=== PATIENT | male | born 1935 | race Caucasian/White ===

== ENCOUNTER 2018-11-21 22:15 | Inpatient (IN) | payer MEDICARE, MEDICAID ==
[2018-11-21 23:19] LABS: % BASOPHILS 0.3 % (0.0-2.0); % EOSINOPHILS 8.5 % (0.0-5.0); % LYMPHOCYTES 30.2 % (20.0-50.0); % MONOCYTES 11.9 % (2.0-10.0); % NEUTROPHILS 49.1 % (40.0-80.0); EOSINOPHILE ABSOLUTE 0.7 Th/cmm (0.1-0.4); HEMATOCRIT 41.3 % (41.0-60); HEMOGLOBIN 13.8 gm/dL (12-16); LYMPHOCYTE ABSOLUTE 2.5 Th/cmm (1.5-3.0); MEAN CELL VOLUME 92.3 fl (80-99); MEAN CORPUSCULAR HEMOGLOBIN 30.9 pg (27.0-31.0); MEAN CORPUSCULAR HGB CONC 33.4 pg (28.0-36.0); NEUTROPHILE ABSOLUTE 4.2 Th/cmm (1.8-8.0); PLATELET COUNT 183 Th/cmm (150-400); RED BLOOD COUNT 4.48 Mil/cmm (3.80-5.80); RED CELL DISTRIBUTION WIDTH 12.3 % (11.5-20.0); WHITE BLOOD COUNT 8.4 Th/cmm (4.8-10.8)
--- NOTE | 2018-11-21 23:28 | ED Physician Chart ---
ED Chief Complaint/HPI - Patient Information Date Seen:: 11/21/18 Time Seen:: 23:24 Chief Complaint:: agitation History of Present Illness:: 83 yr old male with agitation for laura psych eval pt on verbal but does f/u commandsf/u Allergies:: Allergies Allergy/AdvReac Type Severity Reaction Status Date / Time No Known Allergies Allergy Verified 11/21/18 22:24 Vitals:: Vital Signs - 8 hr 11/21/18 22:15 Temp 97.3 F HR 62 RR 18 BP 156/60 O2 Sat % 96 ED Review of Systems - Review of Systems General/Constitutional: No fever, No chills, No weight loss, No weakness, No diaphoresis, No edema, No loss of appetite Skin: No skin lesions, No rash, No bruising Head: No headache, No light-headedness Eyes: No loss of vision, No pain, No diplopia ENT: No earache, No nasal drainage, No sore throat, No tinnitus Neck: No neck pain, No swelling, No thyromegaly, No stiffness, No mass noted Cardio Vascular: No chest pain, No palpitations, No PND, No orthopnea, No edema Pulmonary: No SOB, No cough, No sputum, No wheezing GI: No nausea, No vomiting, No diarrhea, No pain, No melena, No hematochezia, No constipation, No hematemesis G/U: No dysuria, No frequency, No hematuria Musculoskeletal: No bone or joint pain, No back pain, No muscle pain Endocrine: No polyuria, No polydipsia Psychiatric: No prior psych history, No depression, No anxiety, No suicidal ideation Hematopoietic: No bruising, No lymphadenopathy Allergic/Immuno: No urticaria, No angioedema Neurological: No syncope, No focal symptoms, No weakness, No paresthesia, No headache, No seizure, No dizziness, No confusion, No vertigo Family Medical History - Family Member Mother History Unknown: Yes ED Labs/Radiology/EKG Results - Lab Results Results: Laboratory Tests 11/21/18 23:10 WBC 8.4 RBC 4.48 Hgb 13.8 Hct 41.3 MCV 92.3 MCH 30.9 MCHC Differential 33.4 RDW 12.3 Plt Count 183 MPV 7.6 Neutrophils % 49.1 Lymphocytes % 30.2 Monocytes % 11.9 H Eosinophils % 8.5 H Basophils % 0.3 ED Septic Shock - . Is Septic Shock (SBP<90, OR Lactate>4 mmol\L) present?: No - <6hrs of presentation: Vital Signs: Vital Signs - 8 hr 11/21/18 22:15 Temp 97.3 F HR 62 RR 18 BP 156/60 O2 Sat % 96 ED Reassessment (Disposition) - Reassessment Reassessment:: agitation for geropsych eval - Patient Disposition Discharge/Transfer:: Acute Care w/in this hosp Admitted to:: [facility] Condition at Disposition:: Stable
[2018-11-21 23:37] LABS: ALB/GLOB RATIO 1.3 (1.0-1.8); ALBUMIN 3.6 gm/dL (4.2-5.5); ALKALINE PHOSPHATASE 76 U/L (34-104); ANION GAP 12.4 (7.0-16.0); BILIRUBIN,TOTAL 0.4 mg/dL (0.3-1.0); BUN - UREA NITROGEN 26 mg/dL (7-25); CARBON DIOXIDE 21.7 mEq/L (21.0-31.0); CHLORIDE 103 mEq/L (98-107); CREATININE - SERUM 1.3 mg/dL (0.7-1.3); GLUCOSE 158 mg/dL (70-105); POTASSIUM SERUM 4.1 mEq/L (3.5-5.1); SGOT 9 U/L (13-39); SGPT/ALT 6 U/L (7-52); SODIUM SERUM 133 mEq/L (136-145); TOTAL PROTEIN,SERUM 6.4 gm/dL (6.0-8.3)
[2018-11-22 01:06] VITALS: BP 139/72
[2018-11-22] MEDS ORDERED: Non-Formulary Item 1 EA (Cetirizine Hcl [Cetirizine Hcl] 10 MG) PO PRN (01:36)
[2018-11-22 04:58] LABS: CHOLESTEROL 151 mg/dL (<200); HDL -HIGH DENSITY LIPOPROTEIN 35 mg/dL (23-92); TRIGLYCERIDES 189 mg/dL (<150)
[2018-11-22] MEDS: Pantoprazole 40 mg EC Tab PO SCH (09:17)
[2018-11-22] MEDS: Aspirin 81mg Chewable Tab PO SCH (09:19)
--- NOTE | 2018-11-22 18:33 | History & Physical ---
ADMIT DATE: 11/22/2018 CHIEF COMPLAINT: Agitation. HISTORY OF PRESENT ILLNESS: An 83-year-old male who is a [facility] resident, admitted to the Geropsych Unit due to agitation. PAST MEDICAL HISTORY: CAD, dementia, glaucoma, hypertension, GERD, psychosis, BPH. PAST SURGICAL HISTORY: None known. ALLERGIES: No drug allergies. HOME MEDICATIONS: See medication list. REVIEW OF SYSTEMS: GENERAL: Denies any fever or chills. CARDIOVASCULAR: Denies chest pain. RESPIRATORY: Denies shortness of breath. GASTROINTESTINAL: Denies nausea, vomiting or abdominal pain. GENITOURINARY: Denies increased frequency. NEUROLOGIC: No headache, seizures or syncope. All systems reviewed and negative. PHYSICAL EXAMINATION: GENERAL: Elderly male, awake, alert with confusion, no apparent distress. VITAL SIGNS: Temperature 98.0, heart rate 65, blood pressure 139/72, respirations 20. HEENT: Head is normocephalic, atraumatic. NECK: Supple. No mass. LUNGS: Clear bilaterally. ABDOMEN: Soft, nontender. LABORATORY DATA: WBC 8.4, H and H 13.8 and 41.3, platelet of 193. Sodium 132, potassium 4.1, chloride 103, BUN 26, creatinine 1.3. ASSESSMENT: Agitation, coronary artery disease, dementia, hypertension, gastroesophageal reflux disease, psychosis, benign prostatic hypertrophy. PLAN: We will continue the patient's home medications. Fall precautions will be initiated. We will continue to monitor this patient. [facility]# [id number]
--- NOTE | 2018-11-23 01:59 | Psychiatric Evaluation ---
DATE OF SERVICE: 11/21/2018 INITIAL EVALUATION MENTAL STATUS EXAM PATIENT'S AGE: 83. SEX: Male. PHYSICIAN: Dr. Irizarry. CHIEF COMPLAINT: Agitation and difficulty following directions. HISTORY OF PRESENT ILLNESS: The patient is an 83-year-old male who was [facility] the [facility] from [facility] because of increased agitation. The patient has been increasingly irritable and has been restless. The patient also has been having mood swings and has not been able to follow any of staff directions. He also still have been resisting care and has been unpredictable. PAST PSYCHIATRIC HISTORY: The patient has history of dementia and psychosis. PAST MEDICAL HISTORY: The patient has history of Parkinson's disease as well as diabetes mellitus, coronary artery disease and cerebrovascular accident. SOCIAL HISTORY: The [facility] lives in [facility]. No known alcohol or street drug use. ALLERGIES: No known allergies. MENTAL STATUS EXAMINATION: The patient appears his stated age. Anxious. Confused. Forgetful. Hardly answer questions. Easily agitated. Disorganized thoughts and actively responding. The patient did not answer question regarding hallucinations or delusions or regarding suicide or homicide. The patient is alert, but seems to be disoriented to time, place, person and situation. Impaired immediate and recent memory, but intact remote memory. Poor insight and poor judgment. ASSESSMENT: PRIMARY DIAGNOSIS: Unspecified psychosis. SECONDARY DIAGNOSIS: Dementia, moderate to severe, with psychotic features. MEDICAL DIAGNOSES: 1. Diabetes mellitus. 2. Hypertension. 3. Parkinson's disease. TREATMENT PLAN: We will monitor the patient's behavior and condition closely. We will start individual as well as milieu psychotherapy. Also, we will work on behavioral modification. Also, we will adjust psychotropic medications. ESTIMATED LENGTH OF STAY: 5-7 days. PATIENT'S STRENGTHS AND WEAKNESSES: The patient has supportive team in [facility]. WEAKNESSES: Poor impulse control and his forgetfulness. AFTER DISCHARGE PLAN: The patient will return to [facility] with plans for outpatient treatment and followup. CRITERIA FOR DISCHARGE: Better impulse control and stabilizing psychotropic medications. [facility]# [id number]
[2018-11-23 07:06] LABS: A1C 6.8 % (4.8-5.6)
[2018-11-23] MEDS: Pantoprazole 40 mg EC Tab PO SCH (08:40)
[2018-11-23] MEDS: Aspirin 81mg Chewable Tab PO SCH (08:40)
--- NOTE | 2018-11-23 15:53 | Progress Notes ---
DATE: 11/23/2018 SUBJECTIVE: Chart was reviewed and the patient interviewed. Also discussed the patient's condition with the staff and reviewed records and labs. The patient is still restless and is still anxious. The patient also still needs redirections. He also is still confused and still has tendency to wandering around. At the same time, the patient is compliant with taking his medications and the patient continued to take Risperdal 0.5 mg every day with no side effects. ASSESSMENT: The patient is still confused and anxious and needs redirections. TREATMENT PLAN: We will continue to monitor behavior closely. The patient also has Risperdal and also somehow he has Seroquel. We will discontinue Risperdal and we will continue Seroquel and continue to monitor behavior and condition closely. JOB# [id number]
[2018-11-24] MEDS: Aspirin 81mg Chewable Tab PO SCH (09:12)
[2018-11-24] MEDS: Pantoprazole 40 mg EC Tab PO SCH (09:12)
--- NOTE | 2018-11-24 11:19 | Internal Medicine Prog Note ---
Internal Medicine Subjective - Subjective Patient seen and examined:: chart reviewed Patient is:: awake, other (pt still confused anxious needs diredection ) Per staff patient has:: no adverse event, no episodes of fall, tolerating meds Internal Medicine Objective - Results Result Diagrams: 11/21/18 23:10 11/21/18 23:10 Recent Labs: Laboratory Last Values WBC 8.4 Th/cmm (4.8-10.8) 11/21/18 23:10 RBC 4.48 Mil/cmm (3.80-5.80) 11/21/18 23:10 Hgb 13.8 gm/dL (12-16) 11/21/18 23:10 Hct 41.3 % (41.0-60) 11/21/18 23:10 MCV 92.3 fl (80-99) 11/21/18 23:10 MCH 30.9 pg (27.0-31.0) 11/21/18 23:10 MCHC Differential 33.4 pg (28.0-36.0) 11/21/18 23:10 RDW 12.3 % (11.5-20.0) 11/21/18 23:10 Plt Count 183 Th/cmm (150-400) 11/21/18 23:10 MPV 7.6 fl 11/21/18 23:10 Neutrophils % 49.1 % (40.0-80.0) 11/21/18 23:10 Lymphocytes % 30.2 % (20.0-50.0) 11/21/18 23:10 Monocytes % 11.9 % (2.0-10.0) H 11/21/18 23:10 Eosinophils % 8.5 % (0.0-5.0) H 11/21/18 23:10 Basophils % 0.3 % (0.0-2.0) 11/21/18 23:10 Sodium 133 mEq/L (136-145) L 11/21/18 23:10 Potassium 4.1 mEq/L (3.5-5.1) 11/21/18 23:10 Chloride 103 mEq/L (98-107) 11/21/18 23:10 Carbon Dioxide 21.7 mEq/L (21.0-31.0) 11/21/18 23:10 Anion Gap 12.4 (7.0-16.0) 11/21/18 23:10 BUN 26 mg/dL (7-25) H 11/21/18 23:10 Creatinine 1.3 mg/dL (0.7-1.3) 11/21/18 23:10 Est GFR ( Amer) TNP 11/21/18 23:10 Est GFR (Non-Af Amer) TNP 11/21/18 23:10 BUN/Creatinine Ratio 20.0 11/21/18 23:10 Glucose 158 mg/dL (70-105) H 11/21/18 23:10 POC Glucose 111 MG/DL (70 - 105) H 11/22/18 06:54 Calcium 9.0 mg/dL (8.6-10.3) 11/21/18 23:10 Total Bilirubin 0.4 mg/dL (0.3-1.0) 11/21/18 23:10 AST 9 U/L (13-39) L 11/21/18 23:10 ALT 6 U/L (7-52) L 11/21/18 23:10 Alkaline Phosphatase 76 U/L (34-104) 11/21/18 23:10 Total Protein 6.4 gm/dL (6.0-8.3) 11/21/18 23:10 Albumin 3.6 gm/dL (4.2-5.5) L 11/21/18 23:10 Globulin 2.8 gm/dL 11/21/18 23:10 Albumin/Globulin Ratio 1.3 (1.0-1.8) 11/21/18 23:10 Triglycerides 189 mg/dL (<150) H 11/22/18 00:10 Cholesterol 151 mg/dL (<200) 11/22/18 00:10 LDL Cholesterol Direct 105 mg/dL (75-193) 11/22/18 00:10 HDL Cholesterol 35 mg/dL (23-92) 11/22/18 00:10 - Physical Exam Vitals and I&O: Vital Signs Temp 98.0 F 11/24/18 04:46 Pulse 80 11/24/18 09:13 Resp 19 11/24/18 04:46 BP 149/73 11/24/18 09:13 Pulse Ox 99 11/24/18 04:46 Intake & Output 11/23/18 11/24/18 11/24/18 18:59 06:59 18:59 Intake Total 1500 480 Balance 1500 480 Intake: Oral 1500 480 Other: # Voids 3 2 # Bowel Movements 1 Active Medications: Current Medications Acetaminophen (Tylenol) 650 mg PO Q6H PRN PRN Reason: Pain (Moderate) Stop: 01/21/19 01:35 Aspirin (Aspirin Chewable) 81 mg PO DAILY [facility] Stop: 01/21/19 08:59 Last Admin: 11/24/18 09:12 Dose: 81 mg Clopidogrel Bisulfate (Plavix) 75 mg PO DAILY [facility] Stop: 01/21/19 08:59 Last Admin: 11/24/18 09:13 Dose: 75 mg Donepezil HCl (Aricept) 5 mg PO HS [facility] Stop: 01/21/19 20:59 Last Admin: 11/23/18 20:42 Dose: 5 mg Latanoprost (Xalatan 0.005% Ophth Soln) 1 drop EACH EYE HS [facility] Stop: 01/21/19 20:59 Last Admin: 11/23/18 20:42 Dose: 1 drop Loratadine (Claritin) 10 mg PO DAILY PRN PRN Reason: ALLERGY SYMPTOMS Stop: 01/21/19 07:39 Lorazepam (Ativan) 0.5 mg PO Q4HR PRN; Protocol PRN Reason: Anxiety Stop: 12/22/18 01:21 Metoprolol Tartrate (Lopressor) 25 mg PO BID [facility] Stop: 01/21/19 08:59 Last Admin: 11/24/18 09:13 Dose: 25 mg Pantoprazole Sodium (Protonix) 40 mg PO DAILY [facility] Stop: 01/21/19 08:59 Last Admin: 11/24/18 09:12 Dose: 40 mg Quetiapine Fumarate (Seroquel) 12.5 mg PO HS [facility]; Protocol Stop: 01/21/19 20:59 Last Admin: 11/23/18 20:41 Dose: 12.5 mg Sitagliptin Phosphate (Januvia) 50 mg PO BID [facility] Stop: 01/21/19 08:59 Last Admin: 11/24/18 09:13 Dose: 50 mg Tamsulosin HCl (Flomax) 0.4 mg PO DAILY [facility] Stop: 01/21/19 08:59 Last Admin: 11/24/18 09:13 Dose: 0.4 mg Zolpidem Tartrate (Ambien) 5 mg PO HS PRN PRN Reason: Insomnia Stop: 01/21/19 01:21 General: demented HEENT: NC/AT Neck: Supple Lungs: CTAB Cardiovascular: RRR Abdomen: soft, non-tender Extremities: clear Neurological: no change Internal Medicine Assmt/Plan - Assessment Assessment: agitation dementia cadhtn gerd psychosis bph - Plan Plan: Continuation of care. Monitor Labs. Continue present meds as directed. Monitor Diet/Nutritional support. Psych management per Psych. PT/OT prn. Safety precaution. Supportive care. Fall precaution, frequent nursing rounds, and as needed restraints to prevent fall. Continue collaborating with consulting specialists, case management and nursing team. Will Monitor patient and continue present care management.
--- NOTE | 2018-11-24 15:49 | Progress Notes ---
DATE: 11/24/2018 Case was discussed with staff of the patient, reviewed records. Covering for Dr. Irizarry. This is an 83-year-old male who was admitted on 11/21/2018, because of agitation, increasingly irritable, restless with mood swings, unable to follow staff direction, came from [facility]. History of dementia and psychosis. The patient continues to be unpredictable, impulsive, needing redirection. Continues to have poor insight, easily agitated, restless. He is compliant with the medication with no side effects, no sedation, no nausea, no extrapyramidal symptoms, Risperdal 0.5 mg daily. We will continue outpatient group therapy, milieu therapy, adjust medication as needed. [facility]# [id number]
[2018-11-25] MEDS: Pantoprazole 40 mg EC Tab PO SCH (08:51)
[2018-11-25] MEDS: Aspirin 81mg Chewable Tab PO SCH (08:51)
--- NOTE | 2018-11-25 09:56 | Internal Medicine Prog Note ---
Internal Medicine Subjective - Subjective Patient is:: awake, in bed, other (pt still confused anxious needs diredection ) Per staff patient has:: no adverse event, no episodes of fall, tolerating meds Internal Medicine Objective - Results Result Diagrams: 11/21/18 23:10 11/21/18 23:10 Recent Labs: Laboratory Last Values WBC 8.4 Th/cmm (4.8-10.8) 11/21/18 23:10 RBC 4.48 Mil/cmm (3.80-5.80) 11/21/18 23:10 Hgb 13.8 gm/dL (12-16) 11/21/18 23:10 Hct 41.3 % (41.0-60) 11/21/18 23:10 MCV 92.3 fl (80-99) 11/21/18 23:10 MCH 30.9 pg (27.0-31.0) 11/21/18 23:10 MCHC Differential 33.4 pg (28.0-36.0) 11/21/18 23:10 RDW 12.3 % (11.5-20.0) 11/21/18 23:10 Plt Count 183 Th/cmm (150-400) 11/21/18 23:10 MPV 7.6 fl 11/21/18 23:10 Neutrophils % 49.1 % (40.0-80.0) 11/21/18 23:10 Lymphocytes % 30.2 % (20.0-50.0) 11/21/18 23:10 Monocytes % 11.9 % (2.0-10.0) H 11/21/18 23:10 Eosinophils % 8.5 % (0.0-5.0) H 11/21/18 23:10 Basophils % 0.3 % (0.0-2.0) 11/21/18 23:10 Sodium 133 mEq/L (136-145) L 11/21/18 23:10 Potassium 4.1 mEq/L (3.5-5.1) 11/21/18 23:10 Chloride 103 mEq/L (98-107) 11/21/18 23:10 Carbon Dioxide 21.7 mEq/L (21.0-31.0) 11/21/18 23:10 Anion Gap 12.4 (7.0-16.0) 11/21/18 23:10 BUN 26 mg/dL (7-25) H 11/21/18 23:10 Creatinine 1.3 mg/dL (0.7-1.3) 11/21/18 23:10 Est GFR ( Amer) TNP 11/21/18 23:10 Est GFR (Non-Af Amer) TNP 11/21/18 23:10 BUN/Creatinine Ratio 20.0 11/21/18 23:10 Glucose 158 mg/dL (70-105) H 11/21/18 23:10 POC Glucose 111 MG/DL (70 - 105) H 11/22/18 06:54 Calcium 9.0 mg/dL (8.6-10.3) 11/21/18 23:10 Total Bilirubin 0.4 mg/dL (0.3-1.0) 11/21/18 23:10 AST 9 U/L (13-39) L 11/21/18 23:10 ALT 6 U/L (7-52) L 11/21/18 23:10 Alkaline Phosphatase 76 U/L (34-104) 11/21/18 23:10 Total Protein 6.4 gm/dL (6.0-8.3) 11/21/18 23:10 Albumin 3.6 gm/dL (4.2-5.5) L 11/21/18 23:10 Globulin 2.8 gm/dL 11/21/18 23:10 Albumin/Globulin Ratio 1.3 (1.0-1.8) 11/21/18 23:10 Triglycerides 189 mg/dL (<150) H 11/22/18 00:10 Cholesterol 151 mg/dL (<200) 11/22/18 00:10 LDL Cholesterol Direct 105 mg/dL (75-193) 11/22/18 00:10 HDL Cholesterol 35 mg/dL (23-92) 11/22/18 00:10 - Physical Exam Vitals and I&O: Vital Signs Temp 97.8 F 11/24/18 14:00 Pulse 56 11/25/18 08:52 Resp 18 11/24/18 14:00 BP 119/62 11/25/18 08:52 Pulse Ox 97 11/24/18 14:00 Intake & Output 11/24/18 11/25/18 11/25/18 18:59 06:59 18:59 Intake Total 1200 Balance 1200 Intake: Oral 1200 Other: # Voids 3 # Bowel Movements 0 Active Medications: Current Medications Acetaminophen (Tylenol) 650 mg PO Q6H PRN PRN Reason: Pain (Moderate) Stop: 01/21/19 01:35 Aspirin (Aspirin Chewable) 81 mg PO DAILY [facility] Stop: 01/21/19 08:59 Last Admin: 11/25/18 08:51 Dose: 81 mg Clopidogrel Bisulfate (Plavix) 75 mg PO DAILY [facility] Stop: 01/21/19 08:59 Last Admin: 11/25/18 08:51 Dose: 75 mg Donepezil HCl (Aricept) 5 mg PO HS [facility] Stop: 01/21/19 20:59 Last Admin: 11/24/18 20:07 Dose: 5 mg Latanoprost (Xalatan 0.005% Ophth Soln) 1 drop EACH EYE HS [facility] Stop: 01/21/19 20:59 Last Admin: 11/24/18 20:07 Dose: 1 drop Loratadine (Claritin) 10 mg PO DAILY PRN PRN Reason: ALLERGY SYMPTOMS Stop: 01/21/19 07:39 Lorazepam (Ativan) 0.5 mg PO Q4HR PRN; Protocol PRN Reason: Anxiety Stop: 12/22/18 01:21 Metoprolol Tartrate (Lopressor) 25 mg PO BID [facility] Stop: 01/21/19 08:59 Last Admin: 11/25/18 08:52 Dose: Not Given Pantoprazole Sodium (Protonix) 40 mg PO DAILY [facility] Stop: 01/21/19 08:59 Last Admin: 11/25/18 08:51 Dose: 40 mg Quetiapine Fumarate (Seroquel) 12.5 mg PO HS [facility]; Protocol Stop: 01/21/19 20:59 Last Admin: 11/24/18 20:07 Dose: 12.5 mg Sitagliptin Phosphate (Januvia) 50 mg PO BID [facility] Stop: 01/21/19 08:59 Last Admin: 11/25/18 08:51 Dose: 50 mg Tamsulosin HCl (Flomax) 0.4 mg PO DAILY [facility] Stop: 01/21/19 08:59 Last Admin: 11/25/18 08:51 Dose: 0.4 mg Zolpidem Tartrate (Ambien) 5 mg PO HS PRN PRN Reason: Insomnia Stop: 01/21/19 01:21 General: demented, NAD HEENT: NC/AT, EOMI Neck: Supple, No JVD Lungs: CTAB Cardiovascular: RRR Abdomen: soft, non-tender Extremities: clear Neurological: no change Internal Medicine Assmt/Plan - Assessment Assessment: Agitation Dementia Psychosis CAD HTN GERD BPH - Plan Plan: Continue current treatment plan. Monitor Labs.Continue current medications Continue to monitor VS Monitor Diet/Nutritional support. Psych management per Psychiatry. Pain Management. PT/OT prn Safety precaution, Fall precaution, frequent nursing round. Supportive care. Continue collaborating with consulting specialists, case management and nursing team.
[2018-11-25] MEDS ORDERED: GLUCAGON HCl 1 MG KIT IM PRN (17:42)
[2018-11-25] MEDS ORDERED: Dextrose 50% 50 mL Abboject IVP PRN (17:42)
[2018-11-25] MEDS: INSULIN LISPRO SLIDING SCALE 100 UNITS/ML UNIT SUBQ SCH (20:58)
[2018-11-26] MEDS: INSULIN LISPRO SLIDING SCALE 100 UNITS/ML UNIT SUBQ SCH ×4 (08:03→20:52)
[2018-11-26] MEDS: Aspirin 81mg Chewable Tab PO SCH (08:12)
[2018-11-26] MEDS: Pantoprazole 40 mg EC Tab PO SCH (08:12)
--- NOTE | 2018-11-26 13:16 | Internal Medicine Prog Note ---
Internal Medicine Subjective - Subjective Service Date: 11/26/18 Patient seen and examined:: with staff Patient is:: awake, in bed, other (pt still confused anxious needs diredection ) Patient Complaints of:: other (agitated.) Per staff patient has:: no adverse event, no episodes of fall, tolerating meds Internal Medicine Objective - Results Result Diagrams: 11/21/18 23:10 11/21/18 23:10 Recent Labs: Laboratory Last Values WBC 8.4 Th/cmm (4.8-10.8) 11/21/18 23:10 RBC 4.48 Mil/cmm (3.80-5.80) 11/21/18 23:10 Hgb 13.8 gm/dL (12-16) 11/21/18 23:10 Hct 41.3 % (41.0-60) 11/21/18 23:10 MCV 92.3 fl (80-99) 11/21/18 23:10 MCH 30.9 pg (27.0-31.0) 11/21/18 23:10 MCHC Differential 33.4 pg (28.0-36.0) 11/21/18 23:10 RDW 12.3 % (11.5-20.0) 11/21/18 23:10 Plt Count 183 Th/cmm (150-400) 11/21/18 23:10 MPV 7.6 fl 11/21/18 23:10 Neutrophils % 49.1 % (40.0-80.0) 11/21/18 23:10 Lymphocytes % 30.2 % (20.0-50.0) 11/21/18 23:10 Monocytes % 11.9 % (2.0-10.0) H 11/21/18 23:10 Eosinophils % 8.5 % (0.0-5.0) H 11/21/18 23:10 Basophils % 0.3 % (0.0-2.0) 11/21/18 23:10 Sodium 133 mEq/L (136-145) L 11/21/18 23:10 Potassium 4.1 mEq/L (3.5-5.1) 11/21/18 23:10 Chloride 103 mEq/L (98-107) 11/21/18 23:10 Carbon Dioxide 21.7 mEq/L (21.0-31.0) 11/21/18 23:10 Anion Gap 12.4 (7.0-16.0) 11/21/18 23:10 BUN 26 mg/dL (7-25) H 11/21/18 23:10 Creatinine 1.3 mg/dL (0.7-1.3) 11/21/18 23:10 Est GFR ( Amer) TNP 11/21/18 23:10 Est GFR (Non-Af Amer) TNP 11/21/18 23:10 BUN/Creatinine Ratio 20.0 11/21/18 23:10 Glucose 158 mg/dL (70-105) H 11/21/18 23:10 POC Glucose 121 MG/DL (70 - 105) H 11/26/18 11:25 Calcium 9.0 mg/dL (8.6-10.3) 11/21/18 23:10 Total Bilirubin 0.4 mg/dL (0.3-1.0) 11/21/18 23:10 AST 9 U/L (13-39) L 11/21/18 23:10 ALT 6 U/L (7-52) L 11/21/18 23:10 Alkaline Phosphatase 76 U/L (34-104) 11/21/18 23:10 Total Protein 6.4 gm/dL (6.0-8.3) 11/21/18 23:10 Albumin 3.6 gm/dL (4.2-5.5) L 11/21/18 23:10 Globulin 2.8 gm/dL 11/21/18 23:10 Albumin/Globulin Ratio 1.3 (1.0-1.8) 11/21/18 23:10 Triglycerides 189 mg/dL (<150) H 11/22/18 00:10 Cholesterol 151 mg/dL (<200) 11/22/18 00:10 LDL Cholesterol Direct 105 mg/dL (75-193) 11/22/18 00:10 HDL Cholesterol 35 mg/dL (23-92) 11/22/18 00:10 - Physical Exam Vitals and I&O: Vital Signs Temp 97.9 F 11/26/18 06:21 Pulse 66 11/26/18 08:11 Resp 18 11/26/18 06:21 BP 132/64 11/26/18 08:11 Pulse Ox 97 11/26/18 06:21 Intake & Output 11/25/18 11/26/18 11/26/18 18:59 06:59 18:59 Intake Total 240 Balance 240 Intake: Oral 240 Other: # Voids 2 Active Medications: Current Medications Acetaminophen (Tylenol) 650 mg PO Q6H PRN PRN Reason: Pain (Moderate) Stop: 01/21/19 01:35 Aspirin (Aspirin Chewable) 81 mg PO DAILY [facility] Stop: 01/21/19 08:59 Last Admin: 11/26/18 08:12 Dose: 81 mg Clopidogrel Bisulfate (Plavix) 75 mg PO DAILY [facility] Stop: 01/21/19 08:59 Last Admin: 11/26/18 08:11 Dose: 75 mg Dextrose (D50w) 50 ml IVP PRN PRN PRN Reason: Blood Glucose less than 70 Stop: 01/24/19 17:41 Dextrose (Glutose 40%) 18.75 gm PO PRN PRN PRN Reason: Blood Glucose less than 70 Stop: 01/24/19 17:41 Donepezil HCl (Aricept) 10 mg PO HS [facility] Stop: 01/25/19 20:59 Glucagon (Glucagen) 1 mg IM PRN PRN PRN Reason: Blood Glucose less than 70 Stop: 01/24/19 17:41 Insulin Human Lispro (Humalog Insulin Sliding Scale) 0 units SUBQ ACHS [facility]; Protocol Stop: 01/24/19 20:59 Last Admin: 11/26/18 11:38 Dose: Not Given Latanoprost (Xalatan 0.005% Ophth Soln) 1 drop EACH EYE HS [facility] Stop: 01/21/19 20:59 Last Admin: 11/25/18 20:55 Dose: 1 drop Loratadine (Claritin) 10 mg PO DAILY PRN PRN Reason: ALLERGY SYMPTOMS Stop: 01/21/19 07:39 Lorazepam (Ativan) 0.5 mg PO Q4HR PRN; Protocol PRN Reason: Anxiety Stop: 12/22/18 01:21 Metoprolol Tartrate (Lopressor) 25 mg PO BID [facility] Stop: 01/21/19 08:59 Last Admin: 11/26/18 08:11 Dose: 25 mg Pantoprazole Sodium (Protonix) 40 mg PO DAILY [facility] Stop: 01/21/19 08:59 Last Admin: 11/26/18 08:12 Dose: 40 mg Quetiapine Fumarate (Seroquel) 12.5 mg PO HS [facility]; Protocol Stop: 01/21/19 20:59 Last Admin: 11/25/18 20:55 Dose: 12.5 mg Sitagliptin Phosphate (Januvia) 50 mg PO BID [facility] Stop: 01/21/19 08:59 Last Admin: 11/26/18 08:12 Dose: 50 mg Tamsulosin HCl (Flomax) 0.4 mg PO DAILY [facility] Stop: 01/21/19 08:59 Last Admin: 11/26/18 08:11 Dose: 0.4 mg Zolpidem Tartrate (Ambien) 5 mg PO HS PRN PRN Reason: Insomnia Stop: 01/21/19 01:21 Physical Exam: Patient is agitated and confused. General: demented, NAD HEENT: NC/AT, EOMI Neck: Supple, No JVD Lungs: CTAB Cardiovascular: RRR Abdomen: soft, non-tender Extremities: clear Neurological: no change Internal Medicine Assmt/Plan - Assessment Assessment: agitation dementia cadhtn gerd psychosis bph - Plan Plan: Continuation of care. Monitor Labs. Continue present meds as directed. Monitor Diet/Nutritional support. Psych management per Psych. PT/OT prn. Safety precaution. Supportive care. Fall precaution, frequent nursing rounds, and as needed restraints to prevent fall. Continue collaborating with consulting specialists, case management and nursing team. Will Monitor patient and continue present care management. Nutritional Asmnt/Malnutr-PDOC - Dietary Evaluation Malnutrition Findings (Please click <Entered> for more info): see orders.
--- NOTE | 2018-11-26 20:30 | Progress Notes ---
DATE: SUBJECTIVE: Chart reviewed and the patient interviewed. Also discussed the patient's condition with the staff and reviewed the records and labs. The patient is still confused, but he is less irritable and less agitated. The patient also is still withdrawn and is isolating himself. The patient also is interacting minimally with others. He also still needs redirections because of his confusion. Otherwise, he is compliant with taking his medications and the patient continued to take Seroquel 12.5 mg at bedtime and Aricept 5 mg at bedtime with no problems. ASSESSMENT: The patient is still confused and still forgetful and episodes of restlessness. TREATMENT PLAN: We will continue monitoring his behavior and his condition closely. Also, we will increase Aricept to 10 mg at bedtime and continue to work on his confusion. Also, continue to work on discharge plans and on placement issue. JOB# [id number]
--- NOTE | 2018-11-27 07:05 | Discharge Summary ---
DATE OF DISCHARGE: 11/27/2018 PATIENT'S AGE: 83. SEX: Male. PHYSICIAN: Dr. Irizarry. FINAL DIAGNOSES: PRIMARY DIAGNOSIS: Unspecified psychosis. SECONDARY DIAGNOSIS: Dementia, moderate to severe, with psychotic features and behavioral disturbances. MEDICAL DIAGNOSES: 1. Diabetes mellitus. 2. Parkinson's disease. 3. Hypertension. REASON FOR HOSPITALIZATION: The patient was admitted to the hospital from [facility] because of increased agitation and irritability and inability to follow staff directions. HOSPITAL COURSE: The patient continued to be anxious and in irritable mood. The patient also was easily agitated. The patient was started on Seroquel in a dose of 12.5 mg at bedtime. The patient was compliant with taking medications. Gradually, the patient's affect was brighter. The patient was less agitated and less irritable. The patient was discharged from the hospital back to [facility]. Physical examination of the patient showed no acute problems. AFTER DISCHARGE PLANS: The patient discharged from the hospital back to [facility]. Outpatient treatment and followup to continue there. EXPECTED OUTCOME AFTER DISCHARGE: Fair, if the patient continued to take his psychotropic medications and follow up with discharge plans. [facility]# [id number]
[2018-11-27] MEDS: Pantoprazole 40 mg EC Tab PO SCH (09:07)
[2018-11-27] MEDS: Aspirin 81mg Chewable Tab PO SCH (09:07)
[2018-11-27] MEDS: INSULIN LISPRO SLIDING SCALE 100 UNITS/ML UNIT SUBQ SCH ×2 (11:44→16:33)
== END 2018-11-27 16:45 | DRG 885 ==
LOC: ER 22:15 → GERO2 23:59
PROVIDERS: ADMIT Psychiatry & Neurology Psychiatry; ATTEND Psychiatry & Neurology Psychiatry
DX: F29 Unspecified psychosis not due to a substance or known physiological condition (principal); F02.81 Dementia in other diseases classified elsewhere, unspecified severity, with behavioral disturbance; I25.10 Atherosclerotic heart disease of native coronary artery without angina pectoris; H40.9 Unspecified glaucoma; I10 Essential (primary) hypertension; K21.9 Gastro-esophageal reflux disease without esophagitis; N40.0 Benign prostatic hyperplasia without lower urinary tract symptoms; G20 Parkinson's disease; E11.9 Type 2 diabetes mellitus without complications; Z86.73 Personal history of transient ischemic attack (TIA), and cerebral infarction without residual deficits
CPT/HCPCS: 36415-UA; 80053-TC; 80061-TC; 82948-90; 83036-90; 85025-TC; 93005; 96374; Z7610